=== PATIENT | female | born 1965 | race Two or more races ===

== ENCOUNTER 2017-04-18 12:57 | Emergency (ER) | payer SELFPAY ==
[~2017-04-18] VITALS: Ht 177.8 cm; Wt 81.6 kg
[2017-04-18 15:09] VITALS: BP 154/120
[2017-04-18] MEDS: METHOCARBAMOL 500 MG TAB PO ONE (15:38)
[2017-04-18] MEDS: HYDROmorphone HCL 2 MG/ML VL IM ONE (15:38)
[2017-04-18] MEDS: ONDANSETRON HCL 4 MG/2 ML VIAL IM ONE (15:38)
== END 2017-04-18 16:33 | disposition home or self-care (01) ==
LOC: ER 12:59
DX: S39.012A Strain of muscle, fascia and tendon of lower back, initial encounter (principal); X58.XXXA Exposure to other specified factors, initial encounter; Y93.89 Activity, other specified; Y99.8 Other external cause status; Y92.89 Other specified places as the place of occurrence of the external cause
CPT/HCPCS: 72100; 96372; 99284; J1170; J2405

== ENCOUNTER 2024-02-27 05:00 | Emergency (ER) | payer MEDICAID ==
[~2024-02-27] VITALS: Ht 175.3 cm; Wt 90.0 kg
[2024-02-27] MEDS: KETOROLAC TROMETH 60MG/2ML VIAL IM ONE (07:17)
[2024-02-27] MEDS: HYDROcodone-ACET 10/325MG TAB PO ONE (07:18)
[2024-02-27 07:23] VITALS: O2SAT 94
[2024-02-27] MEDS ORDERED: IBU600T PO (08:29)
[2024-02-27 08:33] VITALS: BP 123/79; PULSE 66; RESP 20; TEMP 98.1
== END 2024-02-27 08:29 | disposition home or self-care (01) ==
LOC: ER 05:00
DX: M13.852 Other specified arthritis, left hip (principal); M13.851 Other specified arthritis, right hip; Z88.0 Allergy status to penicillin; Z90.49 Acquired absence of other specified parts of digestive tract
CPT/HCPCS: 73502; 96372; 99283; J1885

== ENCOUNTER 2024-09-19 12:17 | Emergency (ER) | payer MEDICAID ==
[~2024-09-19] VITALS: Ht 175.3 cm; Wt 100.0 kg
[~2024-09-19 12:17] MED LIST: IBU600T PO
[2024-09-19 13:42] VITALS: BP 165/88; PULSE 71; RESP 18; TEMP 97.9; O2SAT 97
[2024-09-19] MEDS ORDERED: TRAM-626 PO (13:47)
== END 2024-09-19 13:53 | disposition home or self-care (01) ==
LOC: ER 12:17
DX: M25.512 Pain in left shoulder (principal); G89.29 Other chronic pain; M19.90 Unspecified osteoarthritis, unspecified site; Z76.0 Encounter for issue of repeat prescription; Z90.49 Acquired absence of other specified parts of digestive tract; Z88.0 Allergy status to penicillin; Z79.899 Other long term (current) drug therapy

== ENCOUNTER 2025-04-16 16:36 | Inpatient (IN) | payer MEDICAID ==
[~2025-04-16] VITALS: Ht 175.3 cm; Wt 99.0 kg
[~2025-04-16 16:36] MED LIST changes: +TRAM-626 PO
--- NOTE | 2025-04-16 17:26 | ED.PDOC ---
Musculoskeletal HPI Comments A 59 YEAR OLD FEMALE PRESENTS TO THE ED WITH CHIEF COMPLAINT OF LEFT THIGH PAIN. PATIENT REPORTS THAT SHE HAD LEFT HIP SURGERY ON 01/26/25 AND HAD BEEN DOING WELL SINCE. PATIENT RELAYS THAT SUDDENLY YESTERDAY, SHE BEGAN TO EXPERIENCE REDNESS WITH ASSOCIATED SWELLING, WARMTH, AND PAIN TO THE SURGICAL INCISION SITE FOR HER HIP REPLACEMENT. PATIENT NOTES SHE HAS HAD SOME DRAINAGE FROM THE SURGICAL SITE FOR ABOUT A WEEK. PATIENT STATES SHE HAS NO RECENT INJURY OR FALL AND THIS HAPPENED SUDDENLY. PATIENT DENIES ANY FEVER, CHILLS, NUMBNESS, WEAKNESS, CHEST PAIN, SOB, OR ANY INJURY. PATIENT DENIES ANY FURTHER SYMPTOMS OR CONCERNS AT THIS TIME. Chief Complaint: Lower Extremity Time Seen by MD: 17:20 Primary Care Provider: JUAN LUIS Bender Notes: Nurses Notes, Medications, Allergies Allergies: Coded Allergies: Penicillins (Verified Allergy, Unknown, 02/27/24) Home Meds Active Scripts Tramadol HCl (Tramadol HCl) 50 Mg Tab, 50 MG PO BID, #20 TAB Prov:AKILAH PRADO 09/19/24 Ibuprofen Micronized (MOTRIN TABLET) 600 Mg Tb, 600 MG PO TID PRN for 5 Days, #1 5 TAB *Black box warning-NSAIDS can increase risk of CT & hypertension, GI irritation, ulceration, bleed, perferation. Do not use post cardiac surgery. Use short duration/lowest effective dose. Prov:STEVEN WORRELL MD 02/27/24 Information Source: Patient Mode of Arrival: Wheelchair Location: Left Extremity Location: Hip, Thigh Timing: Days Prehospital treatment: None Severity: Moderate Able to Move Extremity: Yes Bear Weight: Limited Pain: Moderate Mechanism: Spontaneous Circumstances: Spontaneous Onset of Symptoms: Spontaneous Symptoms: Swelling, Pain, Erythema, Warmth DVT Risk Factors: NONE Last Tetanus: UTD History of: Hip Operation Associated signs and symptoms: Thigh pain, Hip pain Past Medical History PAST MEDICAL HISTORY: Anxiety, Arthritis Surgical History: Appendectomy, Cholecystectomy Surgical History (Other): LEFT HIP REPLACEMENT CEMENT TESTER ASSISTANT History: No Pertinent CEMENT TESTER ASSISTANT History Family History Family History: Reviewed,noncontributory to illness Social History Smoker: Cigarettes Alcohol: Denies ETOH Use Drugs: Denies Drug Use Lives In: Home Constitutional: reports: others (ANXIOUS ); denies: chills, diaphoresis, fatigue, fever, malaise, sweats, weakness EENTM: denies: blurred vision, double vision, ear bleeding, ear discharge, ear drainage, ear pain, ear ringing, eye pain, eye redness, hearing loss, mouth pain, mouth swelling, nasal discharge, nose bleeding, nose congestion, nose pain, photophobia, tearing, throat pain, throat swelling, voice changes, others Respiratory: denies: cough, hemoptysis, orthopnea, SOB at rest, shortness of breath, SOB with excertion, stridor, wheezing, others Cardiovascular: denies: chest pain, dizzy spells, diaphoresis, Dyspnea on exertion, edema, irregular heart beat, left arm pain, lightheadedness, palpitations, PND, syncope, others Gastrointestinal: denies: abdomen distended, abdominal pain, blood streaked bowels, constipated, diarrhea, dysphagia, difficulty swallowing, hematemesis, melena, nausea, poor appetite, poor fluid intake, rectal bleeding, rectal pain, vomiting, others Genitourinary: denies: abnormal vagina bleeding, burning, dyspareunia, dysuria, flank pain, frequency, hematuria, incontinence, pain, , vagina discharge, urgency, others Neurological: denies: dizziness, fainting, headache, left sided numbness, left sided weakness, numbness, paresthesia, pre-existing deficit, right sided numbnes s, right sided weakness, seizure, speech problems, tingling, tremors, weakness, others Musculoskeletal: denies: back pain, gout, joint pain, joint swelling, muscle pain, muscle stiffness, neck pain, others Integumetry: reports: lesions, wounds; denies: bruises, change in color, change in hair/nails, dryness, laceration, lumps, others Allergic/Immunocompromised: denies: Difficulty Healing, Frequent Infections, Hives, Itching, others Hematologic/Lymphatic: denies: anemia, blood clots, easy bleeding, easy br uising, swollen glands, others Endocrine: denies: excessive hunger, excessive sweating, excessive thirst, excessive urination, flushing, intolerance to cold, intolerance to heat, unexplained weight gain, unexplained weight loss, others Psychiatric: denies: anxiety, bipolar disorder, depression, hopeless, panic disorder, schizophrenia, sleepless, suicidal, others All Other Systems: Reviewed and Negative Physical Exam General Appearance: Mild Distress, Obese, Other (ANXIOUS ) HEENT: Normal ENT Inspection, PERRL/EOMI, Pharynx Normal Neck: Full Range of Motion, Non-Tender, Normal, Normal Inspection Respiratory: Chest Non-Tender, Lungs Clear, No Accessory Muscle Use, No Respiratory Distress, Normal Breath Sounds Cardiovascular: No Edema, No JVD, No Murmur, No Gallop, Normal Peripheral Pulses, Regular Rate/Rhythm Breast Exam: Deferred Gastrointestinal: No Organomegaly, Non Tender, No Pulsatile Mass, Normal Bowel Sounds, Soft Genitalia: Deferred Pelvic: Deferred Rectal: Deferred Extremities: Decreased range of motion, No calf tenderness, Normal capillary refill, No pedal edema, Swelling (TENDERNESS, REDNESS AND MILD SWELLING ON LEFT LATERAL THIGH, +CELLULITIS. ), Tender (AND REDNESS ON LEFT LATERAL THIGH, INCISION WOUND REGION, NO BONY TENDERNESS AND DEFORMITY. ) Musculoskeletal : Apperance: Normal Neurologic: Alert, radiology resident II-XII nml as Tested, No Motor Deficits, Normal Affect, Normal Mood, No Sensory Deficits Cerebellar Function: Normal Reflexes: Normal Skin: Dry, Warm, Wounds (LOCALIZED ERYTHEMA, MILD SWELLING AND TENDERNESS ON LEFT LATERAL THIGH, INCISION WOUND REGION, A TINY OPEN WOUND WITH MILD DRAINAGE. +CELLULITIS OF LEFT THIGH DUE TO WOUND INFECTION. ) Peripheral Pulses: 2+ carotid (R), 2+ carotid (L), 2+ dorsalis pedis (R), 2+ dorsalis pedis (L) Lymphatic: No Adenopathy Was a procedure done? Was a procedure done?: No Differential Diagnosis EXT Differential Diagnosis: Cellulitis, Septic, Bursitis, Other (INCISION WOUND INFECTION OF LEFT LATERAL THIGH) X-Ray, Labs, Meds, VS Vital Signs Date Time Temp Pulse Resp B/P (MAP) Pulse Ox O2 Delivery O2 Flow Rate FiO2 04/16/25 20:58 71 20 161/89 04/16/25 18:03 98.5 88 18 148/85 (106) 96 98.5 04/16/25 18:03 88 18 96 Room Air 04/16/25 16:50 97.9 80 18 140/77 (98) 95 97.9 Lab Test 04/16/25 19:44 04/16/25 17:45 Range/Units Lactic Acid Level 0.8 2.3 *H 0.4-2.0 mmol/L White Blood Count 12.2 H 4.4-10.8 10^3/uL Red Blood Count 4.93 4.0-5.20 10^6/uL Hemoglobin 13.7 12.2-16.2 g/dL Hematocrit 42.0 36.0-46.0 % Mean Corpuscular Volume 85.1 80.0-100.0 fL Mean Corpuscular Hemoglobin 27.8 L 28.0-32.0 pg Mean Corpuscular Hemoglobin Concent 32.7 32.0-36.0 g/dL Red Cell Distribution Width 14.8 H 11.8-14.3 % Platelet Count 360 140-450 10^3/uL Mean Platelet Volume 9.1 6.9-10.8 fL Neutrophils (%) (Auto) 68.2 37.0-80.0 % Lymphocytes (%) (Auto) 21.3 10.0-50.0 % Monocytes (%) (Auto) 6.0 0.0-12.0 % Eosinophils (%) (Auto) 3.0 0.0-7.0 % Basophils (%) (Auto) 1.5 0.0-2.0 % Neutrophils # (Auto) 8.3 1.6-8.6 10 ^3/uL Lymphocytes # (Auto) 2.6 0.4-5.4 10 ^3/uL Monocytes # (Auto) 0.7 0-1.3 10 ^3/uL Eosinophils # (Auto) 0.4 0-0.8 10 ^3/uL Basophils # (Auto) 0.2 0-0.2 10 ^3/uL Nucleated Red Blood Cells 0.0 % Sodium Level 144 136-145 mmol/L Potassium Level 3.9 3.5-5.1 mmol/L Chloride Level 112 H 98-107 mmol/L Carbon Dioxide Level 23 20-31 mmol/L Anion Gap 9 5-15 Blood Urea Nitrogen 11 9-23 mg/dL Creatinine 0.91 0.550-1.02 mg/dL Glomerular Filtration Rate Calc 72 >90 mL/min BUN/Creatinine Ratio 12.1 10.0-20.0 Serum Glucose 101 74-106 mg/dL Calcium Level 10.4 8.7-10.4 mg/dL C-Reactive Protein High Sensitivity 1.30 H <1.0 mg/dL Current Medications Medications (Trade) Dose Ordered Sig/Itzel Route Start Time Stop Time Status Last Admin Clindamycin Phosphate 50 ml @ 50 mls/hr ONCE ONCE IV 04/16/25 17:30 04/16/25 18:29 DC 04/16/25 19:51 Sodium Chloride 1,000 ml @ 150 mls/hr Q6H40M ONCE IV 04/16/25 18:15 04/17/25 00:54 DC 04/16/25 18:26 Sodium Chloride 1,000 ml @ 1,000 mls/hr Q1H ONCE IV 04/16/25 19:15 04/16/25 20:14 DC 04/16/25 19:36 Ondansetron HCl (Zofran) 4 mg ONCE ONCE IV 04/16/25 20:45 04/16/25 20:46 DC 04/16/25 20:58 Morphine Sulfate 2 mg ONCE ONCE IV 04/16/25 20:45 04/16/25 20:46 DC 04/16/25 20:58 Ondansetron HCl (Zofran) 4 mg Q4HP PRN IV 04/16/25 22:15 04/17/25 03:00 Morphine Sulfate 2 mg Q4HPRN PRN IV 04/16/25 22:15 04/17/25 05:42 PATIENT: BRIANA BLISS JACCT: [id number]: [id number] : 1965 LOC: ER ROOM / BED: / AGE / SEX: 59 / F ADM STATUS: REG ER SERVICE 1720 ORDERING PHYSICIAN: AKILAH PRADO PROCEDURE(s): LHIP - L HIP COMPLETE XRAY REASON: LEFT HIP PAIN ORDER NUMBER(s): [id number], ACCESSION NUMBER(s): [id number] EXAM: XY L HIP COMPLETE XRAY CLINICAL INDICATION: LEFT HIP PAIN TECHNIQUE: XY L HIP COMPLETE XRAY Comparison: XY L HIP COMPLETE XRAY on DOS: 02/27/24 FINDINGS/IMPRESSION: There is no evidence of acute fracture or dislocation. Left hip arthroplasty which appears to be anatomical position. There is a bone island seen in the right femoral neck. The alignment is anatomical. There is no radiopaque foreign body. ATED BY: KARMA DILLON MD DICTATED DATE/TIME: 04/16/251757 SIGNED BY: KARMA DILLON MD SIGNED DATE/TIME: 04/16/251757 CC: X-Ray, Labs, Meds, VS Comment EXTERNAL MEDICAL RECORDS REVIEWED: [NONE] INDEPENDENT HISTORIANS: [NONE] SOCIAL DETERMINANTS OF HEALTH: [NONE] LABS ORDERED: CBC, BMP, LACTIC ACID, BLOOD CULTURE, CRP, WOUND CULTURE REVIEWED AND INTERPRETED RESULTS: WBC 12.2, LACTIC ACID 2.3, CRP 1.3 IMAGING ORDERED: LEFT HIP XR: NO ACUTE FINDING TREATMENTS ORDERED: 0.9 NS 150ML/HOUR, ROCEPHIN 1G IV, TORADOL 30MG IV, C LINDAMYCIN 900MG IV PROCEDURES PERFORMED: NONE CRITICAL CARE TIME: NONE I HAVE DISCUSSED THE PATIENT WITH THE ATTENDING PHYSICIAN DR. JEAN BAPTISTE AND HE AGREES WITH THE PATIENT'S PLAN OF CARE. UPON MY PHYSICAL EXAMINATION, THE PATIENT HAD FINDINGS CONSISTENT WITH CELLULITIS OF LEFT LATERAL THIGH DUE TO AN INCISION WOUND INFECTION, NO BONY TENDERNESS OR SWELLING OF LEFT HIP. DUE TO THE PATIENT'S PERSISTENT PAIN, CELLULITIS, AND WOUND INFECTION, I HAVE DETERMINED THE PATIENT NEEDS TO BE ADMITTED FOR FURTHER TREATMENT AND EVALUATION. THE ON-CALL HOSPITALIST WILL BE CONTACTED FOR ADMISSION OF THIS PATIENT. Images Reviewed?: Images reviewed and evaluated by me Time of 1ST Reevaluation: 18:00 Reevaluation 1ST: Unchanged Patient Education/Counseling: Diagnosis, Treatment Family Education/Counseling: Diagnosis, Treatment, No Family Present Sepsis Sepsis Reasesment Focused Exam Orders: Laboratory Tests 04/16/25 17:45: Lactic Acid Level 2.3 04/16/25 19:44: Lactic Acid Level 0.8 Departure 1 Departure Time of Disposition: 18:20 Impression: Primary Impression: Cellulitis of left thigh Additional Impression: Wound, surgical, infected Disposition: ADMITTED INPATIENT Condition: Serious Critical Care Note Critical Care Time?: No Stability Stability form required: Yes Unstable for transfer: Requires medication, ED Physician Assesment, Possible rapid decline Heart Score Heart Score: Heart Score Response (Comments) Value History N/A 0 EKG N/A 0 Age N/A 0 Risk Factors N/A 0 Troponin N/A 0 Total 0 I personally scribed for AKILAH PRADO ([email or web address]) on 04/16/25 at 17:26. Electronically submitted by Asa Bradford ([email or web address]). I personally scribed for AKILAH PRADO ([email or web address]) on 04/16/25 at 17:57. Electronically submitted by Asa Bradford ([email or web address]). I personally scribed for AKILAH PRADO ([email or web address]) on 04/17/25 at 06:41. Electronically submitted by Elmer Anguiano ([email or web address]). AKILAH PRADO April 16, 2025 17:26
[2025-04-16] MEDS: cefTRIAXone 1GM/50ML D5W 50 ML IV ONE (17:30)
[2025-04-16] MEDS: KETOROLAC TROMETH 30 MG/ML 1ML VIAL IV ONE (17:30)
--- NOTE | 2025-04-16 18:00 | DVH ---
EXAM: XY L HIP COMPLETE XRAY CLINICAL INDICATION: LEFT HIP PAIN TECHNIQUE: XY L HIP COMPLETE XRAY Comparison: XY L HIP COMPLETE XRAY on DOS: 02/27/24 FINDINGS/IMPRESSION: There is no evidence of acute fracture or dislocation. Left hip arthroplasty which appears to be anatomical position. There is a bone island seen in the right femoral neck. The alignment is anatomical. There is no radiopaque foreign body.
[2025-04-16 18:17] LABS: Basophils # (auto) 0.2 10 ^3/uL (0-0.2); Basophils % (auto) 1.5 % (0.0-2.0); Eosinophils # (auto) 0.4 10 ^3/uL (0-0.8); Hemoglobin 13.7 g/dL (12.2-16.2); Lymphocytes # (auto) 2.6 10 ^3/uL (0.4-5.4); Lymphocytes % (auto) 21.3 % (10.0-50.0); Mean Corpuscular Hemoglobin 27.8 pg (28.0-32.0); Mean Corpuscular Hgb Conc. 32.7 g/dL (32.0-36.0); Mean Corpuscular Volume 85.1 fL (80.0-100.0); Monocytes # (auto) 0.7 10 ^3/uL (0-1.3); Neutrophils # (auto) 8.3 10 ^3/uL (1.6-8.6); Neutrophils % (auto) 68.2 % (37.0-80.0); Platelet Count (auto) 360 10^3/uL (140-450); Red Blood Cells 4.93 10^6/uL (4.0-5.20); Red Cell Distribution Width 14.8 % (11.8-14.3); White Blood Cell 12.2 10^3/uL (4.4-10.8)
[2025-04-16 18:25] LABS: Potassium 3.9 mmol/L (3.5-5.1); Sodium 144 mmol/L (136-145)
[2025-04-16 18:26] LABS: Anion Gap 9 (5-15); Carbon Dioxide 23 mmol/L (20-31)
[2025-04-16] MEDS: SODIUM CHLORIDE 0.9% 1,000 ML IV ONE ×2 (18:26→19:36)
[2025-04-16 18:31] LABS: BUN/Creatinine Ratio 12.1 (10.0-20.0); Blood Urea Nitrogen 11 mg/dL (9-23); Glucose 101 mg/dL (74-106)
[2025-04-16 18:42] LABS: Calcium 10.4 mg/dL (8.7-10.4); Chloride 112 mmol/L (98-107)
[2025-04-16 18:58] LABS: Lactic Acid w/Reflex 2.3 mmol/L (0.4-2.0)
[2025-04-16] MEDS: CLINDAMYCIN 900MG IV 50 ML IV ONE (19:51)
[2025-04-16] MEDS: ONDANSETRON HCL 4 MG/2 ML VIAL IV ONE (20:58)
[2025-04-16] MEDS: MORPHINE SULFATE INJ 2 MG/ml SYRG IV ONE (20:58)
--- NOTE | 2025-04-16 21:44 | DVH ---
EXAM: CT CT L HIP WITH OUT CONTRAST HISTORY: Post hip surgery infection COMPARISON: None TECHNIQUE: Noncontrast axial CT images of the left hip were performed. Sagittal and coronal reformatt ed images were obtained. This CT exam was performed using one or more of the following dose reduction techniques: Automated exposure control, adjustment of the mA and/or kv according to patient size, or the use of iterative reconstruction techniques. Radiation Dose Information: CT Dose: CTDI volume is 31.46+ 0.41+ 0.07 mGy. Dose-length product is 105 1.2 mGy*cm FINDINGS: There is a left hip arthroplasty in place. No periprosthetic lucency or acute fracture. There is slig ht bony demineralization. No acute fracture. There is soft tissue scarring overlying the lateral left hip. There is focal thickening of the skin overlying the left hip in the superior lateral left upper thigh (series 2, image 52). There is a thick-walled fluid collection overlying the musculature of th e superior lateral left thigh overlying the left hip measuring 7.6 cm craniocaudal on coronal image 6 0 and 3.6 x 1.7 cm on series 2, image 57. No soft tissue gas. Prior hysterectomy. Visualized bowel loops are normal caliber. Urinary bladder is mildly distended. There is no pelvic lymphadenopathy. IMPRESSION: 1. Prior left hip arthroplasty. No periprosthetic lucency or acute fracture. 2. Small loculated fluid collection in the deep soft tissues overlying the left hip in the superior l ateral upper left thigh which could be a postoperative collection versus abscess. 3. Thickening of the skin overlying the lateral left hip which could be postoperative versus cellulit is.
[2025-04-16] MEDS ORDERED: HYDROcodone-ACET 5/325MG TAB PO PRN (22:15)
[2025-04-16] MEDS ORDERED: DOCUSATE SOD 100 MG CAP PO PRN (22:15)
--- NOTE | 2025-04-16 23:13 | DVHHP2 ---
History of Present Illness Reason for Visit: Wound, surgical, infected History of Present Illness The patient is a 59-year-old female with past medical history of arthritis and anxiety who presented to [facility] ED with complaint of left hip pain. Patient reports that she had left hip surgery on January 26, 2025 and has been doing well, but yesterday she suddenly began to experience redness, warmth to touch, associated swelling, some drainage, and pain to the surgical incision site. Patient was seen and evaluated in the ED, laboratory data shows WBC 12.2, platelets 360, sodium 144, potassium 3.9, BUN 11, creatinine 0.91, glucose 101, lactic acid 2.3 trending down to 0.8, C-reactive protein 1.30, blood pressure 140/77, heart rate 88, temperature 98.5 F, O2 saturation 96% on room air. Left hip CT revealing small loculated fluid collection in the deep soft tissues overlying the left hip in the superior lateral upper left thigh which could be a postoperative collection versus abscess; thickening of the skin overlying the lateral left hip which could be postoperative versus cellulitis, no periprosthetic lucency acute fracture. Patient was started on IV antibiotic regimen clindamycin, please see medication orders section in the computer. On my assessment, patient denied chest pain, no recent injury or fall, no headache, no dizziness, no diaphoresis, no shortness of breath, no nausea, no vomiting, no fever, no chills. Patient was admitted for further evaluation and medical management. Past Medical History Anxiety, Arthritis Past Surgical History Appendectomy, Cholecystectomy, Left hip replacement Family History Reviewed, noncontributory to the management of this case. Past Social History The patient lives at home, smokes cigarettes, denies alcohol or illicit drugs abuse. Review of Systems Constitutional: Yes: Weakness; No: Fever, Chills, Sweats, Malaise, Other Eyes: No: Pain, Vision change, Conjunctivae inflammation, Eyelid inflammation, Other, Redness ENT: No: Ear pain, Ear discharge, Nose pain, Nose discharge, Nose congestion, Mouth pain, Mouth swelling, Throat pain, Throat swelling, Other Respiratory: No: Cough, Dry, Shortness of breath, SOB with excertion, Wheezing, Hemoptysis, Pleuritic Pain, Sputum, Wheezing, Other Cardiovascular: No: Chest Pain, Palpitations, Orthopnea, Paroxysmal Noc. Dyspnea, Edema, Lt Headedness, Other Gastrointestinal: No: Nausea, Vomiting, Abdominal Pain, Diarrhea, Constipation, Melena, Hematochezia, Other Genitourinary: No Dysuria, No Frequency, No Incontinence, No Hematuria, No Retention, No Other Musculoskeletal: other (Left hip pain); No: neck pain, shoulder pain, arm pain, back pain, hand pain, leg pain, foot pain Skin: Other (Left hip redness/wounds); No: Rash, Lesions, Jaundice, Bruising Neurological: No: Weakness, Numbness, Incoordination, Change in speech, Confusion, Seizures, Other Allergies: Coded Allergies: Penicillins (Verified Allergy, Unknown, 02/27/24) Medications Current Medications Medications Dose Ordered Sig/Itzel Route Start Time Stop Time Status Last Admin Dose Admin Clindamycin Phosphate 50 ml @ 50 mls/hr Q8HR IV 04/17/25 06:00 Sodium Chloride 10 ml Q8HR IV 04/17/25 06:00 Acetaminophen/ Hydrocodone Bitart 1 tab Q4HP PRN PO 04/16/25 22:15 Ondansetron HCl 4 mg Q4HP PRN IV 04/16/25 22:15 Docusate Sodium 100 mg BIDPRN PRN PO 04/16/25 22:15 Enoxaparin Sodium 40 mg DAILY SC 04/17/25 10:00 Acetaminophen 650 mg Q6HP PRN PO 04/16/25 22:15 Morphine Sulfate 2 mg Q4HPRN PRN IV 04/16/25 22:15 Exam Vital Signs Vital Signs Date Time Temp Pulse Resp B/P (MAP) Pulse Ox O2 Delivery O2 Flow Rate FiO2 04/16/25 20:58 71 20 161/89 04/16/25 18:03 98.5 96 98.5 04/16/25 18:03 Room Air General Appearance: Alert, Oriented X3, Cooperative, No acute distress HEENT: Atraumatic, PERRLA, EOMI, Mucous membr. moist/pink Respiratory: Clear to auscultation, Normal air movement Cardiovascular: Regular rate, Normal S1, Normal S2, No murmurs Abdominal: Normal bowel sounds, Soft, No tenderness, No hepatospenomegaly, No masses Extremities: No clubbing, No cyanosis, No edema, Normal pulses, Other (Reports tenderness/swelling) Skin: No rashes Neuro: Normal speech, Normal tone, Sensation intact, Cranial nerves 3-12 NL, Reflexes 2+, Other (Weakness) Psych/Mental Status: Mental status NL, Mood NL Labs/Xrays Labs Test 04/16/25 19:44 04/16/25 17:45 Range/Units Lactic Acid Level 0.8 0.4-2.0 mmol/L White Blood Count 12.2 H 4.4-10.8 10^3/uL Red Blood Count 4.93 4.0-5.20 10^6/uL Hemoglobin 13.7 12.2-16.2 g/dL Hematocrit 42.0 36.0-46.0 % Mean Corpuscular Volume 85.1 80.0-100.0 fL Mean Corpuscular Hemoglobin 27.8 L 28.0-32.0 pg Mean Corpuscular Hemoglobin Concent 32.7 32.0-36.0 g/dL Red Cell Distribution Width 14.8 H 11.8-14.3 % Platelet Count 360 140-450 10^3/uL Mean Platelet Volume 9.1 6.9-10.8 fL Neutrophils (%) (Auto) 68.2 37.0-80.0 % Lymphocytes (%) (Auto) 21.3 10.0-50.0 % Monocytes (%) (Auto) 6.0 0.0-12.0 % Eosinophils (%) (Auto) 3.0 0.0-7.0 % Basophils (%) (Auto) 1.5 0.0-2.0 % Neutrophils # (Auto) 8.3 1.6-8.6 10 ^3/uL Lymphocytes # (Auto) 2.6 0.4-5.4 10 ^3/uL Monocytes # (Auto) 0.7 0-1.3 10 ^3/uL Eosinophils # (Auto) 0.4 0-0.8 10 ^3/uL Basophils # (Auto) 0.2 0-0.2 10 ^3/uL Nucleated Red Blood Cells 0.0 % Sodium Level 144 136-145 mmol/L Potassium Level 3.9 3.5-5.1 mmol/L Chloride Level 112 H 98-107 mmol/L Carbon Dioxide Level 23 20-31 mmol/L Anion Gap 9 5-15 Blood Urea Nitrogen 11 9-23 mg/dL Creatinine 0.91 0.550-1.02 mg/dL Glomerular Filtration Rate Calc 72 >90 mL/min BUN/Creatinine Ratio 12.1 10.0-20.0 Serum Glucose 101 74-106 mg/dL Calcium Level 10.4 8.7-10.4 mg/dL C-Reactive Protein High Sensitivity 1.30 H <1.0 mg/dL PATIENT: BRIANA BLISS ACCT: [id number] UNIT: [id number] : 1965 LOC: ER ROOM / BED: / AGE / SEX: 59 / F ADM STATUS: REG ER SERVICE 1900 ORDERING PHYSICIAN: YOLANDA PINEDA PROCEDURE(s): LHPCT - CT L HIP WITH OUT CONTRAST REASON: Post hip surgery infection ORDER NUMBER(s): [id number], ACCESSION NUMBER(s): [id number] EXAM: CT CT L HIP WITH OUT CONTRAST HISTORY: Post hip surgery infection COMPARISON: None TECHNIQUE: Noncontrast axial CT images of the left hip were performed. Sagittal and coronal reformatted images were obtained. This CT exam was performed using one or more of the following dose reduction techniques: Automated exposure control, adjustment of the mA and/or kv according to patient size, or the use of iterative reconstruction techniques. Radiation Dose Information: CT Dose: CTDI volume is 31.46+ 0.41+ 0.07 mGy. Dose- length product is 1051.2 mGy*cm FINDINGS: There is a left hip arthroplasty in place. No periprosthetic lucency or acute fracture. There is slight bony demineralization. No acute fracture. There is soft tissue scarring overlying the lateral left hip. There is focal thickening of the skin overlying the left hip in the superior lateral left upper thigh (series 2, image 52). There is a thick-walled fluid collection overlying the mus culature of the superior lateral left thigh overlying the left hip measuring 7.6 cm craniocaudal on coronal image 60 and 3.6 x 1.7 cm on series 2, image 57. No soft tissue gas. Prior hysterectomy. Visualized bowel loops are normal caliber. Urinary bladder is mildly distended. There is no pelvic lymphadenopathy. IMPRESSION: 1. Prior left hip arthroplasty. No periprosthetic lucency or acute fracture. 2. Small loculated fluid collection in the deep soft tissues overlying the left hip in the superior lateral upper left thigh which could be a postoperative collection versus abscess. 3. Thickening of the skin overlying the lateral left hip which could be postoperative versus cellulitis. Assessment/Plan Assessment/Plan Wound, surgical, infected Cellulitis of left thigh Leukocytosis, unspecified Generalized weakness Plan 1. Admit to med surge unit 2. Breathing treatment 3. Pain control management 4. IV antibiotic management 5. Management of fluids and electrolytes 6. Consultation for hospitalist 7. Diagnostic test left hip CT 8. DVT prophylaxis-on Lovenox 9. Repeat labs CBC, CMP in a.m. 10. Home medication reviewed and reconciled 11. Continue with current medical management 12. Treatment plan discussed with patient and RN. Patient verbalized understanding. Plan discussed with: Patient, Other (RN) My Orders Orders - LEONCIO MIRANDA DNP Procedure Category Date Status Time Clindamycin 600mg Iv PHA 04/17/25 In Process (Cleocin Iv) 06:00 * Orthopedic Consult CONS 04/16/25 Transmitted 22:08 * Radiologist Consult CONS 04/16/25 Transmitted 22:08 Allergies VIJI 04/16/25 In Process 22:08 Code Status CODE 04/16/25 Transmitted 22:08 Sodium Chloride Lock PHA 04/17/25 In Process (Saline Lock Ns) 06:00 Oxygen Per Hour RT 04/16/25 Transmitted 22:08 Hydrocodone-Acet PHA 04/16/25 In Process 5/325mg Tab ([place] 22:15 Ondansetron Hcl PHA 04/16/25 In Process (Zofran) 22:15 Docusate Sodium PHA 04/16/25 In Process Capsule (Colace 22:15 Enoxaparin Sodium PHA 04/17/25 In Process (Lovenox) 10:00 Fall Risk Precautions VIJI 04/16/[address] 22:08 Complete Blood Count LAB 04/17/25 Verified 04:00 Comprehensive LAB 04/17/25 Verified Metabolic Panel 04:00 Cardiac DIET 04/17/25 Transmitted Diet-2gna,Lofat,Lochol Breakfast Condition: Serious VIJI 04/16/25 In Process 22:08 Acetaminophen Tablet PHA 04/16/25 In Process (Tylenol Tablet) 22:15 Maintain Bed Rest VIJI 04/16/25 In Process 22:08 Morphine Sulfate PHA 04/16/25 In Process Injection 22:15 Sequential VIJI 04/16/25 In Process Compression Device Problem List: (1) Wound, surgical, infected (2) Cellulitis of left thigh (3) Leukocytosis, unspecified (4) Generalized weakness Date of Service: April 16, 2025 Billing Provider: LEONCIO MIRANDA DNP Common Visit Codes: 02953-[id number] INP/OBS CARE (HIGH) LEONCIO MIRANDA DNP April 16, 2025 23:13
[2025-04-16] MEDS ORDERED: NITROGLYCERIN 0.4 MG SL TAB SL PRN (23:15)
[2025-04-16] MEDS ORDERED: MORPHINE SULFATE INJ 2 MG/ml SYRG IV PRN (23:15)
[2025-04-17] VITALS (9 sets, daily range): BP systolic 114–151; BP diastolic 43–75; PULSE 63–78; RESP 16–19; TEMP 97.9–98.8; O2SAT 94–98
[2025-04-17] MEDS: MORPHINE SULFATE INJ 2 MG/ml SYRG IV PRN (00:43)
[2025-04-17] MEDS: ONDANSETRON HCL 4 MG/2 ML VIAL IV PRN (03:00)
[2025-04-17] MEDS: CLINDAMYCIN 600MG IV 50 ML IV SCH (05:28)
[2025-04-17] MEDS: SODIUM CHLOR 0.9% PF (SALINE LOCK) 10ML VIAL/SYR IV SCH (05:48)
[2025-04-17 07:11] LABS: Alanine Aminotransferase 26 U/L (7-40); Alkaline Phosphatase 103 U/L (46-116); Anion Gap 8 (5-15); BUN/Creatinine Ratio 14.5 (10.0-20.0); Bilirubin, Total 0.7 mg/dL (0.2-1.0); Blood Urea Nitrogen 11 mg/dL (9-23); Carbon Dioxide 25 mmol/L (20-31); Glucose 98 mg/dL (74-106); Potassium 3.6 mmol/L (3.5-5.1); Sodium 144 mmol/L (136-145); Total Protein 6.4 g/dL (5.7-8.2)
[2025-04-17 07:19] LABS: Aspartate Aminotransferase 79 U/L (13-40); Basophils # (auto) 0.1 10 ^3/uL (0-0.2); Calcium 8.7 mg/dL (8.7-10.4); Chloride 111 mmol/L (98-107); Eosinophils # (auto) 0.2 10 ^3/uL (0-0.8); Eosinophils % (auto) 2.2 % (0.0-7.0); Hematocrit 34.8 % (36.0-46.0); Hemoglobin 11.6 g/dL (12.2-16.2); Lymphocytes # (auto) 1.6 10 ^3/uL (0.4-5.4); Lymphocytes % (auto) 16.7 % (10.0-50.0); Mean Corpuscular Hemoglobin 28.5 pg (28.0-32.0); Mean Corpuscular Hgb Conc. 33.4 g/dL (32.0-36.0); Mean Corpuscular Volume 85.3 fL (80.0-100.0); Monocytes # (auto) 0.7 10 ^3/uL (0-1.3); Monocytes % (auto) 7.2 % (0.0-12.0); Neutrophils # (auto) 6.8 10 ^3/uL (1.6-8.6); Neutrophils % (auto) 72.9 % (37.0-80.0); Nucleated Red Blood Cells % 0.1 %; Platelet Count (auto) 248 10^3/uL (140-450); Red Blood Cells 4.09 10^6/uL (4.0-5.20); Red Cell Distribution Width 14.6 % (11.8-14.3); White Blood Cell 9.3 10^3/uL (4.4-10.8)
[2025-04-17 08:37] LABS: INR 1.02 (0.9-1.15); Partial Thromboplastin Time 28.4 SEC (24.5-34.5); Prothrombin Time 10.8 sec (9.3-11.8)
--- NOTE | 2025-04-17 10:30 | DVHINCON2 ---
Date of service: April 17, 2025 Reason for Consultation Left hip drainage History of Present Illness 59 yo F with left hip pain/drainage x 1 week -- hx of Left ALBERTO with Dr. Rios on 01/26/25. Per patient her pain became severe so she came into the ER. +fever/chills at home for 2 days Past Medical History Past Medical History Anxiety, Arthritis Past Surgical History Appendectomy, Cholecystectomy, Left hip replacement Family History Reviewed, noncontributory to the management of this case. Past Social History The patient lives at home, smokes cigarettes, Family History: Patient reports no known family medical history. Allergies: Coded Allergies: Penicillins (Verified Allergy, Unknown, 02/27/24) Home Meds Active Scripts Tramadol HCl (Tramadol HCl) 50 Mg Tab, 50 MG PO BID, #20 TAB Prov:AKILAH PRADO 09/19/24 Ibuprofen Micronized (MOTRIN TABLET) 600 Mg Tb, 600 MG PO TID PRN for 5 Days, #15 TAB *Black box warning-NSAIDS can increase risk of LA & hypertension, GI irritation, ulceration, bleed, perferation. Do not use post cardiac surgery. Use short duration/lowest effective dose. Prov:STEVEN WORRELL MD 02/27/24 Current Medications Current Medications Medications (Trade) Dose Ordered Sig/Itzel Route PRN Reason Start Time Stop Time Status Last Admin Clindamycin Phosphate 50 ml @ 50 mls/hr Q8HR IV 04/17/25 06:00 04/17/25 05:28 Sodium Chloride (Saline Lock Ns) 10 ml Q8HR IV 04/17/25 06:00 04/17/25 05:48 Acetaminophen/ Hydrocodone Bitart ([place]udson 5/325MG Tab) 1 tab Q4HP PRN PO MODERATE PAIN (4-6 PAIN SCALE) 04/16/25 22:15 Ondansetron HCl (Zofran) 4 mg Q4HP PRN IV NAUSEA / VOMITING 04/16/25 22:15 04/17/25 06:49 Docusate Sodium (Colace Capsule) 100 mg BIDPRN PRN PO FOR CONSTIPATION 04/16/25 22:15 Enoxaparin Sodium (Lovenox) 40 mg DAILY SC 04/17/25 10:00 Acetaminophen (Tylenol Tablet) 650 mg Q6HP PRN PO PAIN SCALE 1-3 OR TEMP>100.4 04/16/25 22:15 Morphine Sulfate 2 mg Q4HPRN PRN IV SEVERE PAIN (7-10 PAIN SCALE) 04/16/25 22:15 04/17/25 05:42 Nitroglycerin (Ntrostat Sublingual) 0.4 mg Q5MINP PRN SL FOR CHEST PAIN 04/16/25 23:15 Morphine Sulfate 2 mg Q30M PRN IV FOR CHEST PAIN 04/16/25 23:15 Review of Systems 10 point ROS neg excpet per HPI Vital Signs Vital Signs Date Time Temp Pulse Resp B/P (MAP) Pulse Ox O2 Delivery O2 Flow Rate FiO2 04/17/25 08:55 97.9 69 16 143/72 (95) 96 97.9 04/17/25 00:29 Room Air* 0 21 Physical Exam NAD pinpoint open wound over incision with purulent drainage pain with PROM at hip +TA/GS/EHL/FHL foot wwp Labs/Diagnostic Data Labs Test 04/17/25 07:46 04/17/25 06:25 04/16/25 19:44 04/16/25 17:45 Range/Units Prothrombin Time 10.8 9.3-11.8 sec Prothrombin Time INR 1.02 0.9-1.15 Activated Partial Thromboplast Time 28.4 24.5-34.5 SEC White Blood Count 9.3 4.4-10.8 10^3/uL Red Blood Count 4.09 4.0-5.20 10^6/uL Hemoglobin 11.6 #L 12.2-16.2 g/dL Hematocrit 34.8 #L 36.0-46.0 % Mean Corpuscular Volume 85.3 80.0-100.0 fL Mean Corpuscular Hemoglobin 28.5 28.0-32.0 pg Mean Corpuscular Hemoglobin Concent 33.4 32.0-36.0 g/dL Red Cell Distribution Width 14.6 H 11.8-14.3 % Platelet Count 248 140-450 10^3/uL Mean Platelet Volume 8.9 6.9-10.8 fL Neutrophils (%) (Auto) 72.9 37.0-80.0 % Lymphocytes (%) (Auto) 16.7 10.0-50.0 % Monocytes (%) (Auto) 7.2 0.0-12.0 % Eosinophils (%) (Auto) 2.2 0.0-7.0 % Basophils (%) (Auto) 1.0 0.0-2.0 % Neutrophils # (Auto) 6.8 1.6-8.6 10 ^3/uL Lymphocytes # (Auto) 1.6 0.4-5.4 10 ^3/uL Monocytes # (Auto) 0.7 0-1.3 10 ^3/uL Eosinophils # (Auto) 0.2 0-0.8 10 ^3/uL Basophils # (Auto) 0.1 0-0.2 10 ^3/uL Nucleated Red Blood Cells 0.1 % Sodium Level 144 136-145 mmol/L Potassium Level 3.6 3.5-5.1 mmol/L Chloride Level 111 H 98-107 mmol/L Carbon Dioxide Level 25 20-31 mmol/L Anion Gap 8 5-15 Blood Urea Nitrogen 11 9-23 mg/dL Creatinine 0.76 0.550-1.02 mg/dL Glomerular Filtration Rate Calc 90 >90 mL/min BUN/Creatinine Ratio 14.5 10.0-20.0 Serum Glucose 98 74-106 mg/dL Calcium Level 8.7 8.7-10.4 mg/dL Total Bilirubin 0.7 0.2-1.0 mg/dL Aspartate Amino Transferase (AST) 79 H 13-40 U/L Alanine Aminotransferase (ALT) 26 7-40 U/L Alkaline Phosphatase 103 46-116 U/L Total Protein 6.4 5.7-8.2 g/dL Albumin 4.0 3.2-4.8 g/dL Lactic Acid Level 0.8 0.4-2.0 mmol/L C-Reactive Protein High Sensitivity 1.30 H <1.0 mg/dL Plan/Recommendation 59 yo F with hx of recent Left ALBERTO 01/[address] Rios with left hip infection 1. Patient currently on IV abx 2. I discussed with Dr. Rios regarding this case. He would like patient transferred to [facility] where he has privileges so he can monitor patient closely as shes a recent postop patient of his. 3. okay to resume diet Plan discussed with: Patient CASSIDY JEFFREY MD April 17, 2025 10:30
[2025-04-17] MEDS: ENOXAPARIN SOD 40 MG/0.4 ML SYRINGE SC SCH (10:40)
--- NOTE | 2025-04-17 13:45 | DVH ---
Exam: US LEFT LOWER EXTREMITY ULTRASOUN Date: 04/17/2025 12:44 PM Clinical History: POSSIBLE FLUID COLLECTION DRAINAGE Comparison: None Technique: Targeted sonographic evaluation of the soft tissues of the left hip was obtained utilizing grayscale and color Doppler imaging. Findings/Impression: Soft tissue complex fluid collection adjacent to the left hip measuring 6.6 x 1.2 x 1.7 cm with assoc iated subcutaneous edema. Linear radiopaque density measuring 2.1 cm is visualized in the soft tissue s of the left hip which may represent a foreign body.
--- NOTE | 2025-04-17 14:31 | DVHPN2 ---
Eyes: No Pain, No Vision change, No Conjunctivae inflammation, No Eyelid inflammation, No Other, No Redness ENT: No Ear pain, No Ear discharge, No Nose pain, No Nose discharge, No Nose congestion, No Mouth pain, No Mouth swelling, No Throat pain, No Throat swelling, No Other Cardiovascular: No Chest Pain, No Palpitations, No Orthopnea, No Paroxysmal Noc. Dyspnea, No Edema, No Lt Headedness, No Other Respiratory: No Cough, No Dry, No Shortness of breath, No SOB with excertion, No Wheezing, No Hemoptysis, No Pleuritic Pain, No Sputum, No Other Gastrointestinal: No Nausea, No Vomiting, No Abdominal Pain, No Diarrhea, No Constipation, No Melena, No Hematochezia, No Other Genitourinary: No Dysuria, No Frequency, No Incontinence, No Hematuria, No Retention, No Other Musculoskeletal: other (Left hip pain); No neck pain, No shoulder pain, No arm pain, No back pain, No hand pain, No leg pain, No foot pain Skin: No Rash, No Lesions, No Jaundice, No Bruising; Other (Left hip redness/wounds) Objective Vitals Vital Signs Date Time Temp Pulse Resp B/P (MAP) Pulse Ox O2 Delivery O2 Flow Rate FiO2 04/17/25 13:00 98.8 63 16 138/75 (96) 98 98.8 04/17/25 08:00 Room Air* 0 21 Intake/Output Intake and Output 04/17/25 07:00 Intake Total 350 ml Balance 350 ml Intake Oral 300 ml IV Total 50 ml # Voids 1 Medications Current Medications Medications Dose Ordered Sig/Itzel Route Start Time Stop Time Status Last Admin Dose Admin Clindamycin Phosphate 50 ml @ 50 mls/hr Q8HR IV 04/17/25 06:00 04/17/25 05:28 50 MLS/HR Sodium Chloride 10 ml Q8HR IV 04/17/25 06:00 04/17/25 05:48 10 ML Acetaminophen/ Hydrocodone Bitart 1 tab Q4HP PRN PO 04/16/25 22:15 Ondansetron HCl 4 mg Q4HP PRN IV 04/16/25 22:15 04/17/25 10:43 4 MG Docusate Sodium 100 mg BIDPRN PRN PO 04/16/25 22:15 Enoxaparin Sodium 40 mg DAILY SC 04/17/25 10:00 04/17/25 10:40 40 MG Acetaminophen 650 mg Q6HP PRN PO 04/16/25 22:15 Morphine Sulfate 2 mg Q4HPRN PRN IV 04/16/25 22:15 04/17/25 10:40 2 MG Nitroglycerin 0.4 mg Q5MINP PRN SL 04/16/25 23:15 Morphine Sulfate 2 mg Q30M PRN IV 04/16/25 23:15 Laboratory Results Laboratory Tests 04/17/25 06:25 Chemistry Test 04/16/25 17:45 04/17/25 06:25 Calcium Level 10.4 mg/dL (8.7-10.4) 8.7 mg/dL (8.7-10.4) Albumin 4.0 g/dL (3.2-4.8) Total Protein 6.4 g/dL (5.7-8.2) Coagulation Test 04/17/25 07:46 Prothrombin Time 10.8 sec (9.3-11.8) Prothrombin Time INR 1.02 (0.9-1.15) Activated Partial Thromboplast Time 28.4 SEC (24.5-34.5) LFT Test 04/17/25 06:25 Alanine Aminotransferase (ALT) 26 U/L (7-40) Alkaline Phosphatase 103 U/L (46-116) Aspartate Amino Transferase (AST) 79 U/L (13-40) H Total Bilirubin 0.7 mg/dL (0.2-1.0) Microbiology Microbiology Date/Time Source Procedure Growth Status 04/16/25 17:55 Thigh Left Gram Stain Pending Resulted 04/16/25 17:55 Thigh Left Wound Culture - Preliminary Resulted Assessment/Plan My Orders Orders - STEVEN SAMUEL MD Procedure Category Date Status Time * Mine Engineering Manager CONS 04/17/25 Transmitted Consult Discharge DISCHARGE 04/17/25 Transmitted 14:25 STEVEN SAMUEL MD April 17, 2025 14:31
--- NOTE | 2025-04-17 14:31 | DVHDS2 ---
Discharge Summary Date of Admission April 16, 2025 at 23:10 Date of Discharge: April 17, 2025 Labs/Diagnostic Data: Laboratory Results Test 04/17/25 07:46 04/17/25 06:25 04/16/25 19:44 04/16/25 17:45 Prothrombin Time 10.8 sec (9.3-11.8) Prothrombin Time INR 1.02 (0.9-1.15) Activated Partial Thromboplast Time 28.4 SEC (24.5-34.5) White Blood Count 9.3 10^3/uL (4.4-10.8) Red Blood Count 4.09 10^6/uL (4.0-5.20) Hemoglobin 11.6 g/dL (12.2-16.2) Hematocrit 34.8 % (36.0-46.0) Mean Corpuscular Volume 85.3 fL (80.0-100.0) Mean Corpuscular Hemoglobin 28.5 pg (28.0-32.0) Mean Corpuscular Hemoglobin Concent 33.4 g/dL (32.0-36.0) Red Cell Distribution Width 14.6 % (11.8-14.3) Platelet Count 248 10^3/uL (140-450) Mean Platelet Volume 8.9 fL (6.9-10.8) Neutrophils (%) (Auto) 72.9 % (37.0-80.0) Lymphocytes (%) (Auto) 16.7 % (10.0-50.0) Monocytes (%) (Auto) 7.2 % (0.0-12.0) Eosinophils (%) (Auto) 2.2 % (0.0-7.0) Basophils (%) (Auto) 1.0 % (0.0-2.0) Neutrophils # (Auto) 6.8 10 ^3/uL (1.6-8.6) Lymphocytes # (Auto) 1.6 10 ^3/uL (0.4-5.4) Monocytes # (Auto) 0.7 10 ^3/uL (0-1.3) Eosinophils # (Auto) 0.2 10 ^3/uL (0-0.8) Basophils # (Auto) 0.1 10 ^3/uL (0-0.2) Nucleated Red Blood Cells 0.1 % Sodium Level 144 mmol/L (136-145) Potassium Level 3.6 mmol/L (3.5-5.1) Chloride Level 111 mmol/L (98-107) Carbon Dioxide Level 25 mmol/L (20-31) Anion Gap 8 (5-15) Blood Urea Nitrogen 11 mg/dL (9-23) Creatinine 0.76 mg/dL (0.550-1.02) Glomerular Filtration Rate Calc 90 mL/min (>90) BUN/Creatinine Ratio 14.5 (10.0-20.0) Serum Glucose 98 mg/dL (74-106) Calcium Level 8.7 mg/dL (8.7-10.4) Total Bilirubin 0.7 mg/dL (0.2-1.0) Aspartate Amino Transferase (AST) 79 U/L (13-40) Alanine Aminotransferase (ALT) 26 U/L (7-40) Alkaline Phosphatase 103 U/L (46-116) Total Protein 6.4 g/dL (5.7-8.2) Albumin 4.0 g/dL (3.2-4.8) Lactic Acid Level 0.8 mmol/L (0.4-2.0) C-Reactive Protein High Sensitivity 1.30 mg/dL (<1.0) Other Laboratory Tests 04/17/25 06:25 Brief Hx & Hospital Course: 59-year-old female with a known history of osteoarthritis, anxiety disorder, recently had left hip arthroplasty by Dr. Rios, orthopedician, patient presented to the hospital with a left hip drainage has been as left hip and lateral thigh redness found to have left thigh cellulitis as well as his left hip localized fluid can not rule out abscess. Patient was also complaining of left hip wound drainage. Eventually patient was started on IV antibiotics orthopedics was consulted who recommended transferred to the facility via Dr. Rios has privileges. Dr. Rios was approached by Dr.Samir Domi Dr. [facility] accepted the patient at either [facility] are [facility] as he has been yazidi over there. Patient was continued on IV antibiotics can patient is being transferred to [facility]. Plan of care discussed with the patient who understand verbalized understanding and agreeable to plan. Condition at Discharge: Stable Final Diagnosis/Problems List 1. Left hip localized collection rule out abscess 2. Left hip cellulitis 3. Recent history of left hip total hip arthroplasty on January by Dr. Rios Discharge Disposition: Acute Care Facility SNF Discharge Will this Physician continue t: No Discharge Instruct/Medications Diet: Cardiac 2g Na,low cholest Activity: See Comment Activity comment: Patient is being transferred to other facility. Follow Up/Referral: Follow up with your own orthopedician at other facility. Medications: IV antibiotics Discharge Statement: "Patient was advised to return to the ER or call 911 if any headaches, dizziness, shortness of breath, chest pain, abdominal pain, bleeding, fevers, or worsening of medical condition. Patient was counseled about treatment plan, medications, possible side effects, patientverbalized understanding. All questions were answered to the best of my ability. This discharge took greater then 30 minutes in planning, reviewing documentation, counseling the patient, and discussing with other team members." ASSESSMENT ASSESSMENT Assessment 1. Left hip localized collection rule out abscess 2. Left hip cellulitis 3. Recent history of left hip total hip arthroplasty on January by Dr. Rios Date of Service: April 17, 2025 Billing Provider: STEVEN SAMUEL MD Common Visit Codes: 12495-ACY/OBS DISCH DAY >30min STEVEN SAMUEL MD April 17, 2025 14:31
[2025-04-17] MEDS: ACETAMINOPHEN 325 MG TAB PO PRN (22:34)
== END 2025-04-17 22:45 | disposition short-term general hospital (02) | DRG 721 ==
LOC: ER 16:36 → OVERFLOW 23:10 → WEST WING 23:12
PROVIDERS: ADMIT Internal Medicine; ATTEND Internal Medicine
DX: T81.49XA Infection following a procedure, other surgical site, initial encounter (principal); L03.116 Cellulitis of left lower limb; F17.210 Nicotine dependence, cigarettes, uncomplicated; F41.9 Anxiety disorder, unspecified; Z88.0 Allergy status to penicillin; Z79.899 Other long term (current) drug therapy; Z96.642 Presence of left artificial hip joint; Z90.49 Acquired absence of other specified parts of digestive tract; Y84.8 Other medical procedures as the cause of abnormal reaction of the patient, or of later complication, without mention of misadventure at the time of the procedure; Y92.89 Other specified places as the place of occurrence of the external cause
CPT/HCPCS: 36415; 73502; 73700; 80048; 80053; 83605; 85025; 85610; 85730; 86141; 87040; 87077; 87186; 87205; 93926; 96365; 96375; G0378; J1885; J2405; J3490